=== PATIENT | female | born 1990 | race Caucasian/White ===

== ENCOUNTER 2020-03-26 02:08 | Emergency (ER) | payer OTHER ==
[~2020-03-26] VITALS: Ht 172.7 cm; Wt 45.4 kg
--- NOTE | 2020-03-26 02:15 | NUR ---
PT WALK IN TO ED C/O ANXIETY. PT CARE TO [facility]ICHOL[facility]
[2020-03-26 02:20] VITALS: BP 115/89
--- NOTE | 2020-03-26 02:25 | NUR ---
AMBULATED TO BED 11 WITH STEADY GAIT
[2020-03-26 02:30] VITALS: BP 115/89
--- NOTE | 2020-03-26 02:31 | NUR ---
29F PT PRESENTS TO ED WITH C/O ANXIETY THAT STARTED X 1 HOUR. PT UNABLE TO TALK AND CONTINUOUSLY CRYING. RESPIRATIONS EVEN AND UNLABORED. DENIES LOC. DENIES N/V/D. ANY OTHER BODILY ASSESSMENT UNABLE TO OBTAIN DUE TO PT CONTINUOUSLY CRYING PMHX:DENIES RX: DENIES ALLX: DENIES
--- NOTE | 2020-03-26 02:35 | NUR ---
NOBLE PERSON AT BEDSIDE.
[2020-03-26] MEDS ORDERED: LORazepam 2 MG/ML VIAL IM ONE (02:40)
--- NOTE | 2020-03-26 02:43 | NUR ---
PT MEDICATED WITH [facility] FOR ANXIETY. TOLERATED WELL. DAVID
--- NOTE | 2020-03-26 03:02 | NUR ---
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
[2020-03-26 03:51] LABS: BARBITURATE, URINE NEGATIVE ng/ml (NEG <=200); BENZODIAZEPINE, URINE POSITIVE ng/mL (NEG <=200)
[2020-03-26 03:52] LABS: CANNABINOID, URINE NEGATIVE ng/mL (NEG <=50); COCAINE, URINE NEGATIVE ng/mL (NEG <=300); OPIATE, URINE NEGATIVE ng/mL (NEG <=2000); PHENCYCLIDINE SCREEN,URINE NEGATIVE ng/mL (NEG <=25)
--- NOTE | 2020-03-26 04:02 | NUR ---
Patient discharged with v/s stable. Written and verbal after care instructions given and explained. Patient verbalized understanding. Ambulatory with steady gait. All questions addressed prior to discharge. Advised to follow up with PMD.
== END 2020-03-26 04:03 | disposition home or self-care (01) ==
LOC: MED 02:08
DX: F15.251 Other stimulant dependence with stimulant-induced psychotic disorder with hallucinations (principal)
CPT/HCPCS: 80305; 81025; 96372; 99283; J2060